=== PATIENT | female | born 1970 | race Caucasian/White ===

== ENCOUNTER 2018-03-20 05:11 | Day surgery (SDC) | payer OTHER ==
[2018-03-14 15:28] VITALS: BMI 21.9
[2018-03-20] MEDS ORDERED: PROPOFOL 20 ML ONE ×6 (07:19)
[2018-03-20] MEDS ORDERED: ePHEDrine SULFATE 50 MG/1 ML AMPULE ONE (07:19)
[2018-03-20] MEDS ORDERED: MIDAZOLAM HCL 2 MG/2 ML SINGLE DOSE VIAL ONE (07:20)
[2018-03-20] MEDS ORDERED: SUCCINYLCHOLINE CHLORIDE 200 MG/10 ML VIAL ONE (07:20)
--- NOTE | 2018-03-20 07:47 | HP ---
History & Physical Update - History History: No Change - Physical Physical: No Change - Assessment Assessment: No Change - Plan Plan: No Change (Consent signed and witnessed H&P c/w 03/01/18)
[2018-03-20] MEDS ORDERED: DEXAMETHASONE SOD PHOSPHATE 4 MG/1 ML VIAL ONE (08:28)
[2018-03-20] MEDS ORDERED: KETOROLAC TROMETHAMINE 30 MG/1 ML VIAL ONE ×2 (08:28→13:12)
[2018-03-20] MEDS ORDERED: DESFLURANE GAS 240 ML BOTTLE IH ONE (09:13)
[2018-03-20] MEDS ORDERED: ACETAMINOPHEN 325 MG TABLET (FP) PO PRN (09:24)
[2018-03-20] MEDS ORDERED: ONDANSETRON 4 MG/2 ML VIAL IVPUSH PRN ×2 (09:24→18:00)
[2018-03-20] MEDS ORDERED: LACTATED RINGERS SOLUTION 1,000 ML IV SCH (09:30)
[2018-03-20] MEDS ORDERED: oxyCODONE HCL 5 MG TABLET PO PRN (09:39)
[2018-03-20] MEDS ORDERED: IBUPROFEN 600 MG TABLET (FP) PO PRN (09:39)
[2018-03-20] MEDS ORDERED: IBUPROFEN 800 MG/8 ML IJ IVPB PRN (09:39)
--- NOTE | 2018-03-20 09:42 | OP ---
Operative Note - Note: Operative Date: 03/20/18 Pre-Operative Diagnosis: 47yo P2 with Metrorrhagia, thick endometrium Operation: Hysteroscopy, Myomectomy, Polypectomy, D&C, Endometrial ablation Findings: Overgrown Endometrium with Fibroids and Polyps Resected with TruClear device Bilateral Ostia visualized Completed HTA - Genesys cycle Post-Operative Diagnosis: Same as Pre-op Surgeon: Olivia Mcdonnell Anesthesiologist/ADULT PROTECTIVE CASEWORKER: Radames Hall Anesthesia: General Specimens Removed: Fibroid, Polyp, Endometrium curettings Estimated Blood Loss (mls): 15 Instrument used (Debridements only): TruClear, HTA/Genesys Drains & Tubes with Location: Fluid deficit 560cc Drains, Volume Out (mls): 200 Fluid Volume Replaced (mls): 750 Operative Report Dictated: Yes
[2018-03-20] MEDS ORDERED: ELECTROLYTE-148 SOLN 1,000 ML IV SCH (09:45)
[2018-03-20] MEDS ORDERED: ACETAMINOPHEN 1000 MG/100 ML VIAL (NON FORMULARY) IVPB ONE (10:19)
[2018-03-20] MEDS ORDERED: oxyCODONE HCL 5 MG TABLET ONE (11:42)
[2018-03-20] MEDS ORDERED: IBUPROFEN 600 MG TABLET (FP) PO ONE (12:26)
[2018-03-20] MEDS ORDERED: KETOROLAC TROMETHAMINE 30 MG/1 ML VIAL IVPUSH ONE (13:11)
[2018-03-20 13:31] VITALS: TEMP 98.4
[2018-03-20 14:00] VITALS: BP 110/70; PULSE 86
--- NOTE | 2018-03-21 15:10 | PATH ---
Surgical Pathology Report Patient Name: GEOVANNY GROVE [facility]. Rec. #: [id number] /Age/Gender: 1970 (Age: 47) / F Account: [id number] Location: [facility] SURGICAL Taken: 03/20/2018 Received: 03/20/2018 Reported: 03/21/2018 Physicians: ABNER Buitrago M.D. Specimen(s) Received ENDOMETRIAL POLYPS POSSIBLE FIBROIDS, ENDOMETRIAL CURETTINGS Clinical History Endometrial thickening Final Diagnosis ENDOMETRIAL POLYPS, POSSIBLE FIBROIDS, POLYPECTOMY AND CURETTAGE: FRAGMENTS OF ENDOMETRIAL POLYP (S) AND SECRETORY ENDOMETRIUM. Electronically Signed Ofe Pham M.D. Gross Description Received in formalin labeled "endometrial polyps possible, fibroids, endometrial curettings," is a 4.0 x 3.8 x 0.4 cm aggregate of mancia soft tissue fragments. The formalin is filtered and the specimen is entirely submitted in 4 cassettes. /03/20/2018 saudi/03/20/2018
--- NOTE | 2018-03-31 17:19 | OP ---
DATE OF OPERATION: 03/20/2018 PREOPERATIVE DIAGNOSIS: A 47-year-old para 2 with metrorrhagia, thick endometrium. POSTOPERATIVE DIAGNOSIS: A 47-year-old para 2 with metrorrhagia, thick endometrium. OPERATION: Hysteroscopy, myomectomy, polypectomy, dilation and curettage, endometrial ablation. FINDINGS: Overgrown endometrium with small fibroids and polyps resected with TruClear device. Bilateral ostia visualized. Completed HTA Genesys cycle. SURGEON: Olivia Mcdonnell MD ANESTHESIOLOGIST: Radames Hall ANESTHESIA: General, sedation. SPECIMENS REMOVED: 1. Fibroid polyp. 2. Endometrial curettings. DESCRIPTION OF OPERATIVE PROCEDURE: After ensuring informed consent, the patient was brought to the operating room where she was placed in dorsal lithotomy position. The perineum and vagina were prepped and draped in sterile fashion. Since retractors were used to visualized cervix, an anterior lip of the cervix was articulated with single-tooth tenaculum. Cervix was gradually dilated and sized up to 19 gauge with dilators to accommodate 5-mm hysteroscope. Hysteroscope was introduced atraumatically with the above findings. TruClear device was inserted through the surgical port, and endometrium, polyps, and fibroids were resected using TruClear device. Subsequently, hysteroscope was removed, and new hysteroscope was introduced in order to introduce Genesys system. A hysteroscopy was performed one more time. Intact cavity was confirmed, and 10-minute HTA cycle was completed. A 2-minute cooling cycle was completed as well. All instruments subsequently were removed from the cervix and vagina. Vagina was found to be intact without any problems. Estimated blood loss was 15 mL. Instruments used were TruClear and HTA Genesys. Fluid deficit was 560 mL. Urine output was 200 mL. The patient received 700 mL of IV fluids. The patient was extubated and brought stable extubated in the recovery room. All instruments and sponges were correct x2. April [id number] MTDD
== END 2018-03-20 13:55 | disposition home or self-care (01) ==
LOC: JASU-SURG 05:11
PROVIDERS: ATTEND Obstetrics & Gynecology
PROC: 0U5B8ZZ Destruction of Endometrium, Via Natural or Artificial Opening Endoscopic (ICD-10-PCS; principal; 2018-03-20 08:00)
PROC: 0UDB7ZX Extraction of Endometrium, Via Natural or Artificial Opening, Diagnostic (ICD-10-PCS; 2018-03-20 08:00)
PROC: 0UB97ZX Excision of Uterus, Via Natural or Artificial Opening, Diagnostic (ICD-10-PCS; 2018-03-20 08:00)
DX: N92.1 Excessive and frequent menstruation with irregular cycle (principal); D25.9 Leiomyoma of uterus, unspecified; N84.0 Polyp of corpus uteri
CPT/HCPCS: 84703; 88305-TC; 94760; J0131